=== PATIENT | female | born 1940 | race Caucasian/White ===

== ENCOUNTER 2017-01-19 09:45 | Outpatient (RCR) | payer OTHER | END 2017-01-23 | disposition home or self-care (01) | LOC: PTY 09:45 | DX: S46.111A Strain of muscle, fascia and tendon of long head of biceps, right arm, initial encounter (principal); X58.XXXA Exposure to other specified factors, initial encounter; Y93.9 Activity, unspecified; Y92.9 Unspecified place or not applicable ==

== ENCOUNTER → 2017-02-23 | Outpatient (RCR) | payer OTHER | END | disposition home or self-care (01) | LOC: PTY 01-27 13:35 | DX: S46.111D Strain of muscle, fascia and tendon of long head of biceps, right arm, subsequent encounter (principal); I10 Essential (primary) hypertension; M19.90 Unspecified osteoarthritis, unspecified site | CPT/HCPCS: 97110; 97140; G0283 ==

== ENCOUNTER 2017-03-12 13:00 | Outpatient (RCR) | payer OTHER | END 2017-03-25 | disposition home or self-care (01) | LOC: PTY 13:00 | DX: S46.111D Strain of muscle, fascia and tendon of long head of biceps, right arm, subsequent encounter (principal); I10 Essential (primary) hypertension; M19.90 Unspecified osteoarthritis, unspecified site ==